=== PATIENT | female | born 1980 | race African-American/Black ===

== ENCOUNTER → 2016-10-22 | Outpatient (CLI) | payer BC | LOC: FLAB 15:30 | PROVIDERS: ATTEND Family Medicine | DX: R07.81 Pleurodynia (principal); M25.559 Pain in unspecified hip ==

== ENCOUNTER → 2018-05-21 | Outpatient (CLI) | payer OTHER | LOC: BMCIMAGING 10:27 | PROVIDERS: ATTEND Family Medicine | DX: N60.01 Solitary cyst of right breast (principal); N60.02 Solitary cyst of left breast ==